=== PATIENT | female | born 1965 | race Caucasian/White ===

== ENCOUNTER 2019-11-06 09:25 | Emergency (ER) | payer BC, OTHER ==
--- NOTE | 2019-11-06 10:24 | EDM.PDOC ---
ED HPI GENERAL MEDICAL PROBLEM - General Chief Complaint: Abdominal Pain Stated Complaint: COUGH VERY WEAK Time Seen by Provider: 11/06/19 10:21 Source of Information: Reports: Patient, Old Records, RN Notes Reviewed History Limitations: Reports: No Limitations - History of Present Illness INITIAL COMMENTS - FREE TEXT/NARRATIVE: 54-year-old female presents emergency department with a complaint of cough and fever, she does have a known history of moderate persistent asthma was visited by her son this past week who traveled from a [facility] community infection site of [place]. She states 3 days prior had developed some abdominal symptoms diarrhea low-grade fever of which she states was around 100 and then today developed a severe cough which is causing her to have shortness of breath. - Related Data Allergies Allergy/AdvReac Type Severity Reaction Status Date / Time hydromorphone [From Dilaudid] Allergy Anaphylactic Verified 11/06/19 09:39 Shock oxycodone Allergy Other Verified 11/06/19 10:05 tree nut Allergy Anaphylactic Verified 11/06/19 09:39 Shock cefuroxime [From Ceftin] AdvReac Diarrhea Verified 11/06/19 10:05 erythromycin base AdvReac Nausea Verified 11/06/19 10:05 Sulfa (Sulfonamide AdvReac Other Verified 11/06/19 10:05 Antibiotics) Home Meds: Home Meds Albuterol Sulfate [Albuterol Sulfate Hfa] 2 puff IH ASDIRECTED 11/06/19 [History ] Budesonide/Formoterol Fumarate [Symbicort 160-4.5 Mcg Inhaler] 2 puff IH BID [History] EPINEPHrine [Epinephrine] 0.15 mg IM ASDIRECTED 11/06/19 [History] Montelukast Sodium [Singulair] 10 mg PO DAILY 11/06/19 [History] valACYclovir HCl [Valacyclovir] 500 mg PO DAILY 11/06/19 [History] Past Medical History Cardiovascular History: Reports: Hypertension Respiratory History: Reports: Asthma, Sleep Apnea Gastrointestinal History: Reports: Chronic Constipation 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: Endometriosis, Fibroids, Musculoskeletal History: Reports: Back Pain, Chronic Neurological History: Reports: Concussion, Migraines Psychiatric History: Reports: Anxiety - Infectious Disease History Infectious Disease History: Reports: Chicken Pox - Past Surgical History Head Surgeries/Procedures: Reports: None HEENT Surgical History: Reports: LASIK, Tonsillectomy Cardiovascular Surgical History: Reports: None Respiratory Surgical History: Reports: None GI Surgical History: Reports: None Female Surgical History: Reports: Hysterectomy Neurological Surgical History: Reports: None Musculoskeletal Surgical History: Reports: Other (See Below) Other Musculoskeletal Surgeries/Procedures:: ACL Dermatological Surgical History: Reports: None Social & Family History - Tobacco Use Smoking Status *Q: Never Smoker Second Hand Smoke Exposure: No - Caffeine Use Caffeine Use: Reports: Coffee - Recreational Drug Use Recreational Drug Use: No ED ROS GENERAL - Review of Systems Review Of Systems: See Below Constitutional: Reports: Fever, Chills, Fatigue HEENT: Reports: No Symptoms Respiratory: Reports: Shortness of Breath, Cough. Denies: Wheezing, Sputum Cardiovascular: Reports: No Symptoms GI/Abdominal: Reports: Diarrhea : Reports: No Symptoms Musculoskeletal: Reports: No Symptoms Skin: Reports: No Symptoms ED EXAM, GENERAL - Physical Exam Exam: See Below Exam Limited By: No Limitations General Appearance: Alert, WD/WN, No Apparent Distress Respiratory/Chest: No Respiratory Distress, Lungs Clear, Normal Breath Sounds, No Accessory Muscle Use, Chest Non-Tender Cardiovascular: Regular Rate, Rhythm, No Murmur GI/Abdominal: Soft, Non-Tender Extremities: Normal Inspection, Normal Range of Motion, Non-Tender, No Pedal Edema Neurological: Alert, Oriented Course - Vital Signs Last Recorded V/S: Last Vital Signs Temp 99.8 F 11/06/19 09:49 Pulse 78 11/06/19 09:54 Resp 16 11/06/19 09:54 BP 162/84 H 11/06/19 09:54 Pulse Ox 96 11/06/19 09:54 - Orders/Labs/Meds Orders: Active Orders 24 hr Category Date Time Status CORONAVIRUS COVID-19, DEMI Routine Lab 11/06/19 11:06 Received Isolation [COMM] Routine Oth 11/06/19 10:20 Ordered Isolation [COMM] Stat Oth 11/06/19 10:19 Ordered Labs: Laboratory Tests 11/06/19 11/06/19 11/06/19 Range/Units 10:37 10:37 10:37 WBC 4.5 (4.5-11.0) K/uL RBC 5.01 (3.30-5.50) M/uL Hgb 16.7 H (12.0-15.0) g/dL Hct 50.4 H (36.0-48.0) % MCV 101 H (80-98) fL MCH 33 H (27-31) pg MCHC 33 (32-36) % Plt Count 247 (150-400) K/uL Neut % (Auto) 44 (36-66) % Lymph % (Auto) 40 (24-44) % [place] % (Auto) 11 H (2-6) % Eos % (Auto) 3 (2-4) % Baso % (Auto) 1 (0-1) % Sodium (140-148) mmol/L Potassium (3.6-5.2) mmol/L Chloride (100-108) mmol/L Carbon Dioxide (21-32) mmol/L Anion Gap (5.0-14.0) mmol/L BUN (7-18) mg/dL Creatinine (0.6-1.0) mg/dL Est Cr Clr Drug Dosing mL/min Estimated GFR (MDRD) (>60) Glucose (74-106) mg/dL Lactic Acid 1.3 (0.4-2.0) mmol/L Calcium (8.5-10.1) mg/dL Total Bilirubin (0.2-1.0) mg/dL AST (15-37) U/L ALT (12-78) U/L Alkaline Phosphatase (46-116) U/L Total Protein (6.4-8.2) g/dL Albumin (3.4-5.0) g/dL Globulin (2.3-3.5) g/dL Albumin/Globulin Ratio (1.2-2.2) Procalcitonin < 0.05 ng/mL 11/06/19 Range/Units 10:37 WBC (4.5-11.0) K/uL RBC (3.30-5.50) M/uL Hgb (12.0-15.0) g/dL Hct (36.0-48.0) % MCV (80-98) fL MCH (27-31) pg MCHC (32-36) % Plt Count (150-400) K/uL Neut % (Auto) (36-66) % Lymph % (Auto) (24-44) % [place] % (Auto) (2-6) % Eos % (Auto) (2-4) % Baso % (Auto) (0-1) % Sodium 141 (140-148) mmol/L Potassium 4.3 (3.6-5.2) mmol/L Chloride 105 (100-108) mmol/L Carbon Dioxide 30 (21-32) mmol/L Anion Gap 6.5 (5.0-14.0) mmol/L BUN 23 H (7-18) mg/dL Creatinine 1.0 (0.6-1.0) mg/dL Est Cr Clr Drug Dosing 54.89 mL/min Estimated GFR (MDRD) 58 L (>60) Glucose 105 (74-106) mg/dL Lactic Acid (0.4-2.0) mmol/L Calcium 9.2 (8.5-10.1) mg/dL Total Bilirubin 0.3 (0.2-1.0) mg/dL AST 23 (15-37) U/L ALT 40 (12-78) U/L Alkaline Phosphatase 62 (46-116) U/L Total Protein 7.4 (6.4-8.2) g/dL Albumin 4.2 (3.4-5.0) g/dL Globulin 3.2 (2.3-3.5) g/dL Albumin/Globulin Ratio 1.3 (1.2-2.2) Procalcitonin ng/mL - Re-Assessments/Exams Free Text/Narrative Re-Assessment/Exam: 11/06/19 11:05 COVID testing will be ordered by lab collected by nursing staff Departure - Departure Time of Disposition: 11:58 Disposition: Home, Self-Care 01 Condition: Fair Clinical Impression: Viral syndrome - Discharge Information Instructions: Coronavirus Information 10/07/19 Referrals: PCP,None [Primary Care Provider] - Forms: ED Department Discharge Additional Instructions: Use Tylenol as needed for fever control, recommend self quarantine 14 days at this time. please followup with your primary care provider in 3-5 days if not better, please call return to the emergency department with worsening of symptoms. Sepsis Event Note - Evaluation Sepsis Screening Result: No Definite Risk - Focused Exam Vital Signs: Vital Signs Temp Pulse Resp BP Pulse Ox 11/06/19 09:54 78 16 162/84 H 96 11/06/19 09:49 99.8 F 77 16 161/101 H 95 11/06/19 09:38 99.8 F 77 16 161/101 H 95 Date Exam was Performed: 11/06/19 Time Exam was Performed: 11:57 - My Orders Last 24 Hours: My Active Orders 11/06/19 10:19 Isolation [COMM] Stat 11/06/19 10:20 Isolation [COMM] Routine 11/06/19 11:06 CORONAVIRUS COVID-19, DEMI Routine - Assessment/Plan Last 24 Hours: My Active Orders 11/06/19 10:19 Isolation [COMM] Stat 11/06/19 10:20 Isolation [COMM] Routine 11/06/19 11:06 CORONAVIRUS COVID-19, DEMI Routine Plan: Assessment Acuity = acute Site and laterality = viral syndrome Etiology = unknown Manifestations = cough Location of injury = Home Lab values = CBC, CMP, procalcitonin, lactic acid within normal limits chest x- ray shows no acute process COVID-19 testing pending Plan I did review lab bile salts with her plan is to go home and self quarantine Tylenol as needed for fever control follow-up with primary care in the next 3 to 5 days if no improvement will contact with the results of COVID testing This note was dictated using Nan[employer] voice recognition software please call with any questions on syntax or grammar.
--- NOTE | 2019-11-06 10:56 | CR ---
CHEST: Portable 11/06/2019 CLINICAL HISTORY:Respiratory failure COMPARISON:None FINDINGS: Heart size and pulmonary vascularity are normal. There are atherosclerotic changes in the aorta.. No infiltrate effusion or pneumothorax is seen. There is some deformity of the distal right clavicle. This is likely postsurgical. Impression: No acute cardiopulmonary process
== END 2019-11-06 12:14 | disposition home or self-care (01) ==
LOC: JP.ED 09:25
DX: B34.9 Viral infection, unspecified (principal); J45.909 Unspecified asthma, uncomplicated; Z88.5 Allergy status to narcotic agent; Z91.018 Allergy to other foods; Z88.2 Allergy status to sulfonamides; Z88.1 Allergy status to other antibiotic agents
CPT/HCPCS: 36415; 71045; 71045-26; 80053; 83605; 84145; 85025; 87804; 87804-59; 99283-25; U0002

== ENCOUNTER 2020-04-07 14:49 | Emergency (ER) | payer BC, OTHER ==
[2020-04-07] MEDS ORDERED: Sodium Chloride 0.9% 1,000 ML IV ONE (16:23)
[2020-04-07] MEDS ORDERED: Sodium Chloride 0.9% 10 ML Syringe FLUSH PRN (16:24)
[2020-04-07] MEDS ORDERED: Ondansetron 4 MG/2 ML SDV IVPUSH ONE (16:25)
[2020-04-07] MEDS ORDERED: fentaNYL 100 MCG/2 ML SDV IVPUSH ONE (16:26)
--- NOTE | 2020-04-07 16:33 | EDM.PDOC ---
<Debby Austin M - Last Filed: 04/07/20 16:35> ED HPI GENERAL MEDICAL PROBLEM - General Chief Complaint: Headache Stated Complaint: HEADACHE NAUSA Time Seen by Provider: 04/07/20 16:28 Source of Information: Reports: Patient, RN, RN Notes Reviewed History Limitations: Reports: No Limitations - History of Present Illness INITIAL COMMENTS - FREE TEXT/NARRATIVE: Pt here in ER with a 9/10 headache that has progressively gotten worse. Pt indicated headache started about a week ago. Pt states a very remote history of headaches. Changed her diet, no drinking, eat better, and exercise and headaches have been in remission for a very long time. Was at [employer] this past week end competing and was swimming in very cold water. It worsened headache. Pt has much stress and family issues dealing with right now and stress is high. Pt went to urgent care this morning and was given Imitrex but the headache did not improve. Pt is concerned it may be serious. Constant nausea, light and noise sensitive. Onset: Gradual Onset Date: 03/31/20 Duration: Getting Worse Location: Reports: Head Quality: Reports: Ache, Pressure Severity: Severe Improves with: Reports: None Associated Symptoms: Reports: Headaches, Loss of Appetite, Nausea/Vomiting headache Pain Score (Numeric/FACES): 9 - Related Data Allergies Allergy/AdvReac Type Severity Reaction Status Date / Time hydromorphone [From Dilaudid] Allergy Anaphylactic Verified 04/07/20 15:48 Shock oxycodone Allergy Other Verified 04/07/20 15:48 tree nut Allergy Anaphylactic Verified 04/07/20 15:48 Shock cefuroxime [From Ceftin] AdvReac Diarrhea Verified 04/07/20 15:48 erythromycin base AdvReac Nausea Verified 04/07/20 15:48 Sulfa (Sulfonamide AdvReac Other Verified 04/07/20 15:48 Antibiotics) Home Meds: Home Meds Albuterol Sulfate [Albuterol Sulfate Hfa] 2 puff IH ASDIRECTED 11/06/19 [History] Budesonide/Formoterol Fumarate [Symbicort 160-4.5 Mcg Inhaler] 2 puff IH BID 11/06/19 [History] EPINEPHrine [Epinephrine] 0.15 mg IM ASDIRECTED 11/06/19 [History] Montelukast Sodium [Singulair] 10 mg PO DAILY 11/06/19 [History] valACYclovir HCl [Valacyclovir] 500 mg PO DAILY 11/06/19 [History] Ondansetron [Ondansetron ODT] 1 tab PO Q6H PRN 04/07/20 [History] SUMAtriptan 100 mg PO ASDIRECTED 04/07/20 [History] traZODone 50 mg PO BEDTIME PRN 04/07/20 [History] Past Medical History HEENT History: Reports: None Cardiovascular History: Reports: Hypertension Respiratory History: Reports: Asthma, Sleep Apnea Gastrointestinal History: Reports: Chronic Constipation Genitourinary History: Reports: None 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: Endometriosis, Fibroids, Musculoskeletal History: Reports: Back Pain, Chronic Neurological History: Reports: Concussion, Migraines Psychiatric History: Reports: Anxiety Hematologic History: Reports: Other (See Below) Dermatologic History: Reports: Other (See Below) Other Dermatologic History: benign tumors - Infectious Disease History Infectious Disease History: Reports: Chicken Pox - Past Surgical History Head Surgeries/Procedures: Reports: None HEENT Surgical History: Reports: LASIK, Tonsillectomy Cardiovascular Surgical History: Reports: None Respiratory Surgical History: Reports: None GI Surgical History: Reports: None Female Surgical History: Reports: Hysterectomy Neurological Surgical History: Reports: None Musculoskeletal Surgical History: Reports: Other (See Below) Other Musculoskeletal Surgeries/Procedures:: ACL Social & Family History - Tobacco Use Smoking Status *Q: Never Smoker Second Hand Smoke Exposure: No - Caffeine Use Caffeine Use: Reports: Coffee - Recreational Drug Use Recreational Drug Use: No ED ROS GENERAL - Review of Systems Review Of Systems: See Below Constitutional: Reports: Decreased Appetite HEENT: Reports: No Symptoms Respiratory: Reports: No Symptoms Cardiovascular: Reports: No Symptoms Endocrine: Reports: No Symptoms : Reports: No Symptoms Musculoskeletal: Reports: Neck Pain (Like when she had meningitis from remote history ) Skin: Reports: No Symptoms Neurological: Reports: Headache (Was at clinic today and was given Imitrex ) Psychiatric: Reports: Anxiety (Spouse prostate Ca, son using drugs, and a family suicide) Hematologic/Lymphatic: Reports: No Symptoms Immunologic: Reports: No Symptoms - Physical Exam Exam: See Below Exam Limited By: No Limitations General Appearance: Alert, Moderate Distress Eye Exam: Bilateral Eye: PERRL Head Exam: Normocephalic Neck: Limited Range of Motion (Posterior neck stiff and pain from headache) Respiratory/Chest: No Respiratory Distress, Lungs Clear, Normal Breath Sounds, No Accessory Muscle Use, Chest Non-Tender Cardiovascular: Regular Rate, Rhythm, No Edema, No Gallop, No Murmur, No Rub (Female) Exam: Deferred Rectal (Female) Exam: Deferred Neuro Exam (Abbreviated): Alert, Oriented, CN II-XII Intact, Other (Headache exacerbated by light and noisde) Psychiatric: Normal Affect Skin Exam: Warm, Dry Course - Vital Signs Text/Narrative:: Exam and visit with pt. Labs and meds ordered Departure - Departure Disposition: Home, Self-Care 01 Clinical Impression: Migraine - Discharge Information Instructions: Recurrent Migraine Headache Referrals: Meg Cheney PA-C [Primary Care Provider] - Forms: ED Department Discharge Additional Instructions: Continue with your regular medications please followup with your primary care provider in 3-5 days if not better, please call return to the emergency department with worsening of symptoms., Sepsis Event Note (ED) - Evaluation Sepsis Screening Result: No Definite Risk <OfficerUche - Last Filed: 04/07/20 18:39> - Physical Exam Eye Exam: Bilateral Eye: EOMI, Normal Fundi, PERRL Course - Vital Signs Last Recorded V/S: Last Vital Signs Temp 98.2 F 04/07/20 18:36 Pulse 70 04/07/20 18:36 Resp 16 04/07/20 18:36 BP 138/73 04/07/20 18:36 Pulse Ox 95 04/07/20 18:36 - Orders/Labs/Meds Orders: Active Orders 24 hr Category Date Time Status Peripheral IV Care [RC] . DIRECTED Care 04/07/20 16:24 Active Sodium Chloride 0.9% [Saline Flush] Med 04/07/20 16:24 Active 10 ml FLUSH ASDIRECTED PRN Peripheral IV Insertion Adult [OM.PC] Routine Oth 04/07/20 16:24 Ordered Medication Orders Sodium Chloride (Saline Flush) 10 ml FLUSH ASDIRECTED PRN PRN Reason: Keep Vein Open Labs: Laboratory Tests 04/07/20 04/07/20 Range/Units 16:24 16:24 WBC 5.1 (4.5-11.0) K/uL RBC 4.71 (3.30-5.50) M/uL Hgb 16.2 H (12.0-15.0) g/dL Hct 48.6 H (36.0-48.0) % MCV 103 H (80-98) fL MCH 34 H (27-31) pg MCHC 33 (32-36) % Plt Count 245 (150-400) K/uL Neut % (Auto) 46 (36-66) % Lymph % (Auto) 36 (24-44) % [place] % (Auto) 11 H (2-6) % Eos % (Auto) 5 H (2-4) % Baso % (Auto) 2 H (0-1) % Sodium 144 (140-148) mmol/L Potassium 4.1 (3.6-5.2) mmol/L Chloride 107 (100-108) mmol/L Carbon Dioxide 27 (21-32) mmol/L Anion Gap 10.4 (5.0-14.0) mmol/L BUN 23 H (7-18) mg/dL Creatinine 1.0 (0.6-1.0) mg/dL Est Cr Clr Drug Dosing 54.24 mL/min Estimated GFR (MDRD) 57 L (>60) Glucose 116 H (74-106) mg/dL Calcium 9.0 (8.5-10.1) mg/dL Total Bilirubin 0.2 (0.2-1.0) mg/dL AST 25 (15-37) U/L ALT 31 (12-78) U/L Alkaline Phosphatase 58 (46-116) U/L Total Protein 7.0 (6.4-8.2) g/dL Albumin 3.8 (3.4-5.0) g/dL Globulin 3.2 (2.3-3.5) g/dL Albumin/Globulin Ratio 1.2 (1.2-2.2) Meds: Medications Generic Name Dose Route Start Last Admin Trade Name Freq PRN Reason Stop Dose Admin Sodium Chloride 10 ml 04/07/20 16:24 Saline Flush FLUSH ASDIRECTED PRN Keep Vein Open Discontinued Medications Generic Name Dose Route Start Last Admin Trade Name Freq PRN Reason Stop Dose Admin Dexamethasone 4 mg 04/07/20 17:52 04/07/20 18:29 Dexamethasone IVPUSH 04/07/20 17:53 4 mg ONETIME ONE Administration Diphenhydramine HCl 50 mg 04/07/20 16:42 04/07/20 17:09 Benadryl IVPUSH 04/07/20 16:43 50 mg ONETIME ONE Administration Fentanyl 50 mcg 04/07/20 16:26 Sublimaze IVPUSH 04/07/20 16:27 ONETIME ONE Haloperidol Lactate 5 mg 04/07/20 17:52 04/07/20 18:31 Haldol IVPUSH 04/07/20 17:53 5 mg ONETIME ONE Administration Sodium Chloride 1,000 mls @ 999 mls/hr 04/07/20 16:23 04/07/20 17:08 Normal Saline IV 04/07/20 17:23 999 mls/hr .BOLUS ONE Administration Prochlorperazine Edisylate 5 51 mls @ 150 mls/hr 04/07/20 16:46 04/07/20 17:18 mg/ Sodium Chloride IV 04/07/20 17:06 150 mls/hr ONETIME ONE Administration Ketorolac Tromethamine 30 mg 04/07/20 16:42 04/07/20 17:12 Toradol IVPUSH 04/07/20 16:43 30 mg ONETIME ONE Administration Ondansetron HCl 4 mg 04/07/20 16:25 Zofran IVPUSH 04/07/20 16:26 ONETIME ONE Departure - Departure Time of Disposition: 18:39 Condition: Fair Sepsis Event Note (ED) - Focused Exam Vital Signs: Vital Signs Temp Pulse Resp BP Pulse Ox 04/07/20 18:36 98.2 F 70 16 138/73 95 04/07/20 17:22 76 173/101 H 100 04/07/20 16:30 70 163/99 H 94 L 04/07/20 16:04 98.3 F 72 16 165/99 H 94 L 04/07/20 15:46 98.3 F 72 16 165/99 H 94 L - Assessment/Plan Plan: Assessment Acuity = acute Site and laterality = migraine Etiology = [example unknown Manifestations = none Location of injury = Home Lab values = CBC CMP unremarkable Plan Good improvement 1 L fluids, Toradol, Compazine, Haldol and Benadryl headache was improved she is going to follow-up with her primary care and continue with her regular migraine medications This note was dictated using [employer] voice recognition software please call with any questions on syntax or grammar.
[2020-04-07] MEDS ORDERED: Ketorolac 30 MG/ML SDV IVPUSH ONE (16:42)
[2020-04-07] MEDS ORDERED: diphenhydrAMINE 50 MG/ML SDV IVPUSH ONE (16:42)
[2020-04-07] MEDS ORDERED: Prochlorperazine 5 MG in Sodium Chloride 0.9% 50 ML IV ONE (16:46)
[2020-04-07] MEDS ORDERED: Haloperidol Lactate 5 MG/ML SDV IVPUSH ONE (17:52)
[2020-04-07] MEDS ORDERED: Dexamethasone 4 MG/ML SDV IVPUSH ONE (17:52)
== END 2020-04-07 18:52 | disposition home or self-care (01) ==
LOC: JP.ED 14:49
DX: G43.909 Migraine, unspecified, not intractable, without status migrainosus (principal); I10 Essential (primary) hypertension; F41.9 Anxiety disorder, unspecified; J45.909 Unspecified asthma, uncomplicated; Z90.710 Acquired absence of both cervix and uterus; Z88.8 Allergy status to other drugs, medicaments and biological substances; Z91.018 Allergy to other foods; Z88.2 Allergy status to sulfonamides; Z79.899 Other long term (current) drug therapy
CPT/HCPCS: 36415; 80053; 85025; 96361; 96365; 96375; 99284; J0780; J1100; J1200; J1630; J1885; J7040; J7050

== ENCOUNTER 2021-10-08 09:45 | Day surgery (SDC) | payer BC ==
[2021-10-08] MEDS ORDERED: Sodium Chloride 0.9% 1,000 ML IV SCH (10:30)
[2021-10-08] MEDS ORDERED: Propofol 200 MG/20 ML SDV ONE (10:40)
[2021-10-08] MEDS ORDERED: Midazolam 1 MG/ML 2 ML SDV ONE (10:40)
[2021-10-08] MEDS ORDERED: fentaNYL 100 MCG/2 ML SDV ONE (10:40)
== END 2021-10-08 14:00 | disposition home or self-care (01) ==
LOC: JP.SDS 09:45
PROVIDERS: ATTEND Surgery
DX: Z12.11 Encounter for screening for malignant neoplasm of colon (principal); K57.30 Diverticulosis of large intestine without perforation or abscess without bleeding; K64.8 Other hemorrhoids; J45.909 Unspecified asthma, uncomplicated
CPT/HCPCS: J2250; J2704; J3010; J7030